=== PATIENT | male | born 1940 | race Caucasian/White ===

== ENCOUNTER → 2017-12-27 | Outpatient (CLI) | payer MEDICARE ==
[~2017-12-27] MED LIST: AMLO10 PO; ASPI81EC PO; BLOOD PRESSURE PILL; Bactrim Ds Tab1 EACH PO; EZET10 PO; FISH1000 PO; Keflex500 MG PO; LISI20 PO; METO50 PO; METO50ER PO; METOPROLOL PO; Norco 5-325 Ta1 EACH PO; PARO20 PO; RANI150 PO; VENL150ER PO; [UNRECOGNIZED DRUG - REMARK]
== END ==
LOC: LAB SHORT 10:26 → PLD 10:26
DX: D22.71 Melanocytic nevi of right lower limb, including hip (principal)
CPT/HCPCS: 88305; 88341; 88342

== ENCOUNTER → 2018-07-07 | Outpatient (CLI) | payer MEDICARE ==
[2018-07-07 09:49] LABS: BASOPHILS ABSOLUTE AUTO 0.05 K/mm3 (0.00-0.23); BASOPHILS PERCENT AUTO 1 % (0-2); EOSINOPHILS ABSOLUTE AUTO 0.33 K/mm3 (0.00-0.68); EOSINOPHILS PERCENT AUTO 4 % (0-6); Hematocrit 43.3 % (37.0-53.0); Hemoglobin 13.8 g/dL (13.5-17.5); IMMATURE GRAN ABSOLUTE AUTO 0.04 K/mm3 (0.00-0.10); IMMATURE GRAN PERCENT AUTO 0 % (0-1); LYMPHOCYTES ABSOLUTE AUTO 1.92 K/mm3 (0.84-5.20); LYMPHOCYTES PERCENT AUTO 21 % (21-46); MONOCYTES ABSOLUTE AUTO 0.81 K/mm3 (0.16-1.47); MONOCYTES PERCENT AUTO 9 % (4-13); Mean Corpuscular HGB Conc 31.9 g/dL (31.5-36.5); Mean Corpuscular Volume 88 fL (80-100); Mean Platelet Volume 9.8 fL (9.1-12.4); NEUTROPHILS ABSOLUTE AUTO 6.21 K/mm3 (1.96-9.15); NEUTROPHILS PERCENT AUTO 66 % (41-73); Platelet Count 343 K/mm3 (150-400); RDW Coefficient Variation 13.4 % (11.7-14.2); Red Blood Cell Count 4.93 M/mm3 (4.30-5.90); White Blood Cell Count 9.36 K/mm3 (4.00-11.30)
[2018-07-07 09:59] LABS: Alanine Aminotransfer (ALT/SGP 22 U/L (12-78); Albumin, Blood 3.8 g/dL (3.4-5.0); Albumin/Globulin Ratio 0.8 (0.8-1.8); Alk Phos 111 U/L (40-126); Anion Gap 10 mmol/L (6-16); Aspartate Aminotrans (AST/SGOT 14 U/L (12-37); Bilirubin, Total 0.7 mg/dL (0.1-1.0); Blood Urea Nitrogen 25 mg/dL (8-24); CO2, Blood 27 mmol/L (21-32); Calcium, Blood 9.3 mg/dL (8.5-10.1); Chloride, Blood 99 mmol/L (98-108); Creatinine, Blood 1.04 mg/dL (0.60-1.20); Globulin, Blood 4.7 g/dL (2.2-4.0); Glomerular Filtration Rate >60 (60-); Glucose, Blood 116 mg/dL (70-99); Potassium, Blood 4.2 mmol/L (3.5-5.5); Sodium, Blood 136 mmol/L (136-145); Total Protein, Blood 8.5 g/dL (6.4-8.2); Uric Acid, Blood 6.3 mg/dL (3.5-7.2)
[2018-07-07 13:41] LABS: Rheumatoid Factor, Serum Negative (Negative)
[2018-07-08 10:38] LABS: Antinuclear Antibody Screen Negative (Negative)
== END | disposition home or self-care (01) ==
LOC: LAB EV 09:29 → LAB SHORT 09:29
PROVIDERS: Physician Assistant
DX: M25.50 Pain in unspecified joint (principal)
CPT/HCPCS: 80053; 84550; 85025; 85651; 86038; 86140; 86430

== ENCOUNTER 2020-06-04 06:39 | Day surgery (SDC) | payer MEDICARE ==
[~2020-06-04] VITALS: Ht 167.6 cm; Wt 95.4 kg
[~2020-06-04 06:39] MED LIST changes: +ASPIR 8181 M1 PO; +SERT100 PO
== END 2020-06-04 08:52 | disposition home or self-care (01) ==
LOC: ORSCSDS 06:39
PROVIDERS: Internal Medicine Gastroenterology
PROC: 0DBK8ZX Excision of Ascending Colon, Via Natural or Artificial Opening Endoscopic, Diagnostic (ICD-10-PCS; principal; 2020-06-04 08:00)
PROC: 0DBN8ZX Excision of Sigmoid Colon, Via Natural or Artificial Opening Endoscopic, Diagnostic (ICD-10-PCS; principal; 2020-06-04 08:00)
DX: R19.4 Change in bowel habit (principal); D12.2 Benign neoplasm of ascending colon; D12.5 Benign neoplasm of sigmoid colon; K57.30 Diverticulosis of large intestine without perforation or abscess without bleeding; Z86.010 Personal history of colon polyps; Z83.71 Family history of colonic polyps; I10 Essential (primary) hypertension; G47.33 Obstructive sleep apnea (adult) (pediatric); F41.8 Other specified anxiety disorders; K75.81 Nonalcoholic steatohepatitis (NASH); E78.5 Hyperlipidemia, unspecified; Z79.899 Other long term (current) drug therapy; Z87.891 Personal history of nicotine dependence
CPT/HCPCS: 82947; 88305; J2704; J7120

== ENCOUNTER 2022-09-01 08:19 | Day surgery (SDC) | payer MEDICARE ==
[~2022-09-01] VITALS: Ht 167.6 cm; Wt 90.2 kg
[2022-09-01] MEDS ORDERED: FINA5 (09:17)
[2022-09-01] MEDS ORDERED: ZESTRIL40 M1 (09:17)
[2022-09-01] MEDS ORDERED: TAMS.4ER (09:18)
--- NOTE | 2022-09-01 09:19 | NUR ---
09/01/22 0919 TREVA UBNN PT DOES NOT KNOW WHICH MEDICATIONS HE TAKES, TOLD RN HE PICKS UP PRESCRIPTIONS AT [facility] AND TAKES ONLY 3 PILLS. RN CALLED PHARMACY AT [facility] AND RECIEVED LIST OF MEDICATIONS THAT PT HAS FILLED (MORE THAN 3). PT ONLY KNOWS MEDICATIONS BY LOOK OF PILL AND NOT BY NAME. LIST PROVIDED IS THE LIST FROM [facility] THAT PT HAS HAD FILLED RECENTLY
== END 2022-09-01 10:15 | disposition home or self-care (01) ==
LOC: ORSCSDS 08:19
PROVIDERS: Student in an Organized Health Care Education/Training Program
PROC: 08RJ3JZ Replacement of Right Lens with Synthetic Substitute, Percutaneous Approach (ICD-10-PCS; principal; 2022-09-01 09:45)
DX: H25.13 Age-related nuclear cataract, bilateral (principal); E11.9 Type 2 diabetes mellitus without complications; I10 Essential (primary) hypertension; G47.33 Obstructive sleep apnea (adult) (pediatric); F41.8 Other specified anxiety disorders; Z79.899 Other long term (current) drug therapy; Z79.82 Long term (current) use of aspirin
CPT/HCPCS: 82947; J2001; J2250; J3010; J7040; V2632

== ENCOUNTER 2022-09-15 06:54 | Day surgery (SDC) | payer MEDICARE ==
[~2022-09-15] VITALS: Ht 167.6 cm; Wt 91.3 kg
[~2022-09-15 06:54] MED LIST changes: +FINA5; +TAMS.4ER; +ZESTRIL40 M1
--- NOTE | 2022-09-15 07:40 | NUR ---
09/15/22 0740 Kareem Cruz TETRACAINE AT 0722 IN LEFT EYE PLEDGET AT 0724 IN LEFT EYE
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
== END 2022-09-15 09:30 | disposition home or self-care (01) ==
LOC: ORSCSDS 06:54
PROVIDERS: Student in an Organized Health Care Education/Training Program
PROC: 08DK3ZZ Extraction of Left Lens, Percutaneous Approach (ICD-10-PCS; principal; 2022-09-15 08:15)
DX: H25.12 Age-related nuclear cataract, left eye (principal); H21.81 Floppy iris syndrome; Z96.1 Presence of intraocular lens; I10 Essential (primary) hypertension; E11.9 Type 2 diabetes mellitus without complications; G47.33 Obstructive sleep apnea (adult) (pediatric); E66.9 Obesity, unspecified; Z68.32 Body mass index [BMI] 32.0-32.9, adult; Z79.82 Long term (current) use of aspirin; Z79.899 Other long term (current) drug therapy
CPT/HCPCS: J2001; J2250; J3010; J7040; V2632